=== PATIENT | male | born 1995 | race American Indian/Alaskan Native ===

== ENCOUNTER 2017-06-06 12:55 | Emergency (ER) | payer MEDICAID ==
[2017-06-06 12:56] VITALS: BMI 22.8
[2017-06-06 13:06] VITALS: BP 126/85; PULSE 60; TEMP 98; O2SAT 99
[2017-06-06 13:13] VITALS: RESP 18
--- NOTE | 2017-06-06 13:14 | ED PDOC ---
HPI: SOB/CHF/COPD Time Seen by Provider: 06/06/17 13:07 Chief Complaint (Nursing): Shortness Of Breath Chief Complaint (Provider): Shortness Of Breath History Per: Patient History/Exam Limitations: no limitations Onset/Duration Of Symptoms: Days (x1) Current Symptoms Are (Timing): Still Present Additional Complaint(s): Jose Manuel Cassidy is a 22 year old male with previous medical history of asthma, who presents to the emergency department with a complaint of shortness of breath associated with headache and dizziness ongoing for 1 day. Denied any chest pain. Patient stated he was using an inhaler for relief but ran out of medication last week. PMD: none provided Past Medical History Reviewed: Historical Data, Nursing Documentation, Vital Signs Vital Signs: Last Vital Signs Temp 98.0 F 06/06/17 12:59 Pulse 60 06/06/17 12:59 Resp 18 06/06/17 13:12 BP 126/85 06/06/17 12:59 Pulse Ox 99 06/06/17 14:16 - Medical History PMH: Asthma Denies: Anxiety, Bipolar Disorder, Depression, Paranoia, Post Traumatic Stress Disorder, Chronic Kidney Disease, Schizophrenia - Surgical History Surgical History: No Surg Hx - Family History Family History: States: Unknown Family Hx - Social History Current smoker - smoking cessation education provided: No Ex-Smoker (has not smoked in the last 12 months): No Alcohol: None Drugs: Denies - Home Medications Home Medications: Ambulatory Orders Medication Instructions Recorded Amoxicillin/Clavulanate [Augmentin 1 tab PO BID #20 tab 04/10/16 875 MG-125 MG] Naproxen [Naprosyn Tab] 250 mg PO BID PRN #10 tab 04/10/16 Albuterol HFA [Ventolin HFA 90 1 puff IH BID PRN #2 unit 06/06/17 mcg/actuation (8 g)] - Allergies Allergies/Adverse Reactions: Allergies Allergy/AdvReac Type Severity Reaction Status Date / Time No Known Allergies Allergy Verified 10/03/15 11:17 Review of Systems ROS Statement: Except As Marked, All Systems Reviewed And Found Negative Cardiovascular: Negative for: Chest Pain Respiratory: Positive for: Shortness of Breath (subsiding) Neurological: Positive for: Headache, Dizziness Physical Exam - Reviewed Nursing Documentation Reviewed: Yes Vital Signs Reviewed: Yes - Physical Exam Appears: Positive for: Well, Non-toxic, No Acute Distress Head Exam: Positive for: ATRAUMATIC, NORMAL INSPECTION, NORMOCEPHALIC Skin: Positive for: Normal Color Eye Exam: Positive for: Normal appearance ENT: Positive for: Normal ENT Inspection Neck: Positive for: Normal Cardiovascular/Chest: Positive for: Regular Rate, Rhythm Respiratory: Positive for: Normal Breath Sounds. Negative for: Decreased Breath Sounds, Wheezing, Respiratory Distress Back: Positive for: Normal Inspection Extremity: Positive for: Normal ROM Neurologic/Psych: Positive for: Alert (x3), Oriented - Laboratory Results Result Diagrams: 06/06/17 13:15 06/06/17 13:15 - ECG O2 Sat by Pulse Oximetry: 99 (RA) Pulse Ox Interpretation: Normal Medical Decision Making Medical Decision Making: Initial Impression: Shortness of breath Initial Plan: * EKG * CMP * TSH * CBC * PTT * PT * CXR Time: 1402 --CXR FINDINGS: LUNGS: No active pulmonary disease. PLEURA: No significant pleural effusion identified. No pneumothorax apparent. CARDIOVASCULAR: Normal. OSSEOUS STRUCTURES: No significant abnormalities. VISUALIZED UPPER ABDOMEN: Normal. OTHER FINDINGS: None. IMPRESSION: No acute cardiopulmonary disease appreciated. Scribe Attestation: Documented by Emy Lyle, acting as a scribe for Jessica Wiggins MD. Provider Scribe Attestation: All medical record entries made by the Scribe were at my direction and personally dictated by me. I have reviewed the chart and agree that the record accurately reflects my personal performance of the history, physical exam, medical decision making, and the department course for this patient. I have also personally directed, reviewed, and agree with the discharge instructions and disposition. Disposition - Clinical Impression Clinical Impression: Asthma, Medication refill, Abnormal thyroid function test - Patient ED Disposition Is Patient to be Admitted: No Counseled Patient/Family Regarding: Diagnosis, Need For Followup - Disposition Referrals: [facility] [Outside] Disposition: Routine/Home Disposition Time: 14:21 Condition: GOOD Additional Instructions: Please follow-up with PMD for further evaluation of low TSH level. Prescriptions: Albuterol HFA [Ventolin HFA 90 mcg/actuation (8 g)] 1 puff IH BID PRN #2 unit PRN Reason: Wheezing Instructions: Asthma (ED) Forms: [employer] (Sinhala)
[2017-06-06 13:34] LABS: BASO # 0.1 K/uL (0.0-0.2); BASO % 2.2 % (0.0-2.0); EOS # 0.2 K/uL (0.0-0.7); EOS % 3.5 % (0.0-4.0); HEMATOCRIT 44.9 % (35.0-51.0); LYMPH # 1.5 K/uL (1.0-4.3); MEAN CELL VOLUME 91.8 fl (80.0-94.0); MEAN CORPUSCULAR HEMOGLOBIN 31.7 pg (27.0-31.0); MEAN CORPUSCULAR HGB CONC 34.5 g/dL (33.0-37.0); MEAN PLATELET VOLUME 9.2 fl (7.2-11.7); MONO # 0.5 K/uL (0.0-0.8); NEUT # 3.1 K/uL (1.8-7.0); NEUT % 56.3 % (50.0-75.0); NRBC % 0.1 % (0.0-0.0); RED CELL DISTRIBUTION WIDTH 12.4 % (11.5-14.5); WHITE BLOOD COUNT 5.5 K/uL (4.8-10.8)
[2017-06-06 13:42] LABS: ALB/GLOB RATIO 1.4 (1.0-2.1); ALKALINE PHOSPHATASE 57 U/L (38-126); ALT/SGPT 26 U/L (21-72); AST/SGOT 17 U/L (17-59); BILIRUBIN,TOTAL 0.5 mg/dl (0.2-1.3); BLOOD UREA NITROGEN 15 mg/dl (9-20); CALCIUM 9.4 mg/dL (8.4-10.2); CARBON DIOXIDE 27 mmol/L (22-30); CHLORIDE 105 mmol/L (98-107); GFR AFRICAN-AMERICAN > 60; GLUCOSE,RANDOM 97 mg/dL (75-110); POTASSIUM 4.1 MMOL/L (3.6-5.0); SODIUM 144 mmol/l (132-148); TOTAL PROTEIN 7.8 G/DL (6.3-8.2)
--- NOTE | 2017-06-06 14:04 | RAD ---
HISTORY: dizziness, SOB COMPARISON: No prior. TECHNIQUE: Chest PA and lateral FINDINGS: LUNGS: No active pulmonary disease. PLEURA: No significant pleural effusion identified. No pneumothorax apparent. CARDIOVASCULAR: Normal. OSSEOUS STRUCTURES: No significant abnormalities. VISUALIZED UPPER ABDOMEN: Normal. OTHER FINDINGS: None. IMPRESSION: No acute cardiopulmonary disease appreciated.
--- NOTE | 2017-06-07 08:09 | CARD ---
APPROVED REPORT EKG Measurement Heart [id number] <Conclusion> Sinus bradycardia Incomplete right bundle branch block Borderline ECG
== END 2017-06-06 14:40 | disposition home or self-care (01) ==
LOC: H.ER 12:55
DX: J45.909 Unspecified asthma, uncomplicated (principal); R94.6 Abnormal results of thyroid function studies; Z76.0 Encounter for issue of repeat prescription

== ENCOUNTER 2017-12-02 09:16 | Emergency (ER) | payer MEDICAID ==
[2017-12-02 09:27] VITALS: BP 118/76; PULSE 61; TEMP 97; O2SAT 99
[2017-12-02 09:28] VITALS: RESP 16; BMI 25.0
[2017-12-02] MEDS ORDERED: Naproxen 500 MG TAB PO STA (10:06)
[2017-12-02] MEDS ORDERED: Naproxen 500 MG TAB PO ONE (10:15)
--- NOTE | 2017-12-02 10:28 | RAD ---
PROCEDURE: Radiographs of the Left Shoulder HISTORY: Superior shoulder pain COMPARISON: No prior. FINDINGS: BONES: Normal. No fracture. JOINTS: Normal. Glenohumeral and acromioclavicular joints preserved. No osteoarthritis. SOFT TISSUES: Normal. OTHER FINDINGS: None. IMPRESSION: Normal radiographs of the left shoulder.
--- NOTE | 2017-12-02 10:39 | ED PDOC ---
Upper Extremity Pain/Injury Time Seen by Provider: 12/02/17 10:01 Chief Complaint (Nursing): Upper Extremity Problem/Injury Chief Complaint (Provider): Left Shoulder Pain History Per: Patient History/Exam Limitations: no limitations Onset/Duration Of Symptoms: Days (12/02/07) Current Symptoms Are (Timing): Better Quality: "Pain" Additional Complaint(s): 22 year old male presents to the ED complaining of left shoulder pain. Reports he was playing basketball last night, 12/01/17 and fell. The shoulder pain worsens with movement. Denies taking any medicine for pain. PMD: No Family Provider Past Medical History Reviewed: Historical Data, Nursing Documentation, Vital Signs Vital Signs: Last Vital Signs Temp 97 F L 12/02/17 09:26 Pulse 61 12/02/17 09:26 Resp 16 12/02/17 09:26 BP 118/76 12/02/17 09:26 Pulse Ox 99 12/02/17 09:26 - Medical History PMH: Asthma Denies: Anxiety, Bipolar Disorder, Depression, Paranoia, Post Traumatic Stress Disorder, Chronic Kidney Disease, Schizophrenia - Surgical History Surgical History: No Surg Hx - Family History Family History: States: Unknown Family Hx - Home Medications Home Medications: Ambulatory Orders Medication Instructions Recorded Amoxicillin/Clavulanate [Augmentin 1 tab PO BID #20 tab 04/10/16 875 MG-125 MG] Naproxen [Naprosyn Tab] 250 mg PO BID PRN #10 tab 04/10/16 Albuterol HFA [Ventolin HFA 90 1 puff IH BID PRN #2 unit 06/06/17 mcg/actuation (8 g)] Cyclobenzaprine [Cyclobenzaprine 10 mg PO TID PRN #15 tab 12/02/17 HCl] Naproxen [Naprosyn] 500 mg PO BID PRN #15 tablet 12/02/17 - Allergies Allergies/Adverse Reactions: Allergies Allergy/AdvReac Type Severity Reaction Status Date / Time No Known Allergies Allergy Verified 12/02/17 09:26 Review of Systems ROS Statement: Except As Marked, All Systems Reviewed And Found Negative Musculoskeletal: Positive for: Shoulder Pain (left) Physical Exam - Reviewed Nursing Documentation Reviewed: Yes Vital Signs Reviewed: Yes - Physical Exam Appears: Positive for: Well, Non-toxic, No Acute Distress Head Exam: Positive for: ATRAUMATIC, NORMAL INSPECTION, NORMOCEPHALIC Skin: Positive for: Normal Color, Warm, Dry Eye Exam: Positive for: EOMI, Normal appearance, PERRL ENT: Positive for: Normal ENT Inspection Neck: Positive for: Normal, Painless ROM, Supple. Negative for: Decreased ROM Cardiovascular/Chest: Positive for: Regular Rate, Rhythm. Negative for: Murmur Respiratory: Positive for: Normal Breath Sounds. Negative for: Decreased Breath Sounds, Accessory Muscle Use, Respiratory Distress Gastrointestinal/Abdominal: Positive for: Normal Exam, Bowel Sounds, Soft. Negative for: Tenderness, Guarding, Rebound Back: Positive for: Normal Inspection. Negative for: L CVA Tenderness, R CVA Tenderness Extremity: Positive for: Normal ROM, Tenderness (left superior posterior shoulder). Negative for: Deformity Neurologic/Psych: Positive for: Alert, Oriented (x3). Negative for: Motor/ Sensory Deficits (normal radial pulses) - ECG O2 Sat by Pulse Oximetry: 99 (RA) Pulse Ox Interpretation: Normal Medical Decision Making Medical Decision Making: Time: 1006 Initial Impression: Shoulder Injury Initial Plan: --Flexeril 10mg --Naproxen 500mg --Shoulder Left [RAD] --Reevaluation Time: 1027 PROCEDURE: Radiographs of the Left Shoulder FINDINGS: BONES: Normal. No fracture. JOINTS: Normal. Glenohumeral and acromioclavicular joints preserved. No osteoarthritis. SOFT TISSUES: Normal. OTHER FINDINGS: None. IMPRESSION: Normal radiographs of the left shoulder Arm sling placed. Scribe Attestation: Documented by Ena Quezada, acting as a scribe for Cecy Badillo MD Provider Scribe Attestation: All medical record entries made by the Scribe were at my direction and personally dictated by me. I have reviewed the chart and agree that the record accurately reflects my personal performance of the history, physical exam, medical decision making, and the department course for this patient. I have also personally directed, reviewed, and agree with the discharge instructions and disposition. Disposition - Clinical Impression Clinical Impression: Shoulder strain - Disposition Referrals: [facility] [Outside] Disposition: Routine/Home Disposition Time: 11:19 Condition: STABLE Prescriptions: Cyclobenzaprine [Cyclobenzaprine HCl] 10 mg PO TID PRN #15 tab PRN Reason: Pain Naproxen [Naprosyn] 500 mg PO BID PRN #15 tablet PRN Reason: Pain, Moderate (4-7) Instructions: Muscle Strain Forms: [employer] (Chilean)
== END 2017-12-02 11:44 | disposition home or self-care (01) ==
LOC: H.ER 09:16
DX: M25.512 Pain in left shoulder (principal)

== ENCOUNTER 2017-12-07 11:00 | Emergency (ER) | payer MEDICAID ==
[2017-12-07 11:00] VITALS: BMI 25.0
[2017-12-07 11:10] VITALS: O2SAT 100
[2017-12-07] MEDS ORDERED: Albuterol-Ipratrop 3 mg / 0.5 (3 ml) UD INH STA (11:26)
[2017-12-07] MEDS ORDERED: Albuterol-Ipratrop 3 mg / 0.5 (3 ml) UD ONE (11:32)
--- NOTE | 2017-12-07 11:36 | ED PDOC ---
HPI: SOB/CHF/COPD Time Seen by Provider: 12/07/17 11:21 Chief Complaint (Nursing): Respiratory Distress Chief Complaint (Provider): shortness of breath, chest pain History Per: Patient History/Exam Limitations: no limitations Current Symptoms Are (Timing): Still Present Quality: Tightness Exacerbating Factor(s): Coughing Severity: Mild Associated Symptoms: Chest Pain, Other (cough). denies: Fever, Chills, Dizziness, Anxiety Additional Complaint(s): 22yo male c/o chest tightness and SOB he states is consistent with past experience with asthma. Denies syncope, dizziness, edema or orthopnea. Has history of asthma, no prior admissions, uses albuterol pump intermittently but hasnt had one for awhile. PMD- states goes to urgent care when needed Past Medical History Reviewed: Historical Data, Nursing Documentation, Vital Signs Vital Signs: Last Vital Signs Temp 98.8 F 12/07/17 15:43 Pulse 70 12/07/17 15:43 Resp 19 12/07/17 15:43 BP 110/70 12/07/17 15:43 Pulse Ox 100 12/07/17 15:43 - Medical History PMH: Asthma Denies: Anxiety, Bipolar Disorder, Depression, Paranoia, Post Traumatic Stress Disorder, Chronic Kidney Disease, Schizophrenia - Surgical History Surgical History: No Surg Hx - Family History Family History: States: Unknown Family Hx - Social History Current smoker - smoking cessation education provided: No - Home Medications Home Medications: Ambulatory Orders Medication Instructions Recorded Albuterol HFA [Ventolin HFA 90 1 puff IH BID PRN #2 unit 06/06/17 mcg/actuation (8 g)] Albuterol HFA [Ventolin HFA 90 1 - 2 puff IH Q4 PRN #1 inhaler 12/07/17 mcg/actuation (8 g)] Prednisone 50 mg PO DAILY #4 tab 12/07/17 - Allergies Allergies/Adverse Reactions: Allergies Allergy/AdvReac Type Severity Reaction Status Date / Time No Known Allergies Allergy Verified 12/02/17 09:26 Review of Systems Constitutional: Negative for: Fever, Chills Cardiovascular: Positive for: Chest Pain. Negative for: Palpitations, Orthopnea Respiratory: Positive for: Cough, Shortness of Breath, SOB with Exertion, Wheezing Gastrointestinal: Negative for: Abdominal Pain Genitourinary Male: Negative for: Dysuria Musculoskeletal: Negative for: Neck Pain Skin: Negative for: Rash, Lesions Neurological: Negative for: Weakness, Numbness, Headache, Dizziness Physical Exam - Reviewed Nursing Documentation Reviewed: Yes Vital Signs Reviewed: Yes - Physical Exam Appears: Positive for: Well, Non-toxic, No Acute Distress Head Exam: Positive for: ATRAUMATIC, NORMAL INSPECTION, NORMOCEPHALIC Skin: Positive for: Normal Color, Warm, DRY Eye Exam: Positive for: EOMI, Normal appearance, PERRL ENT: Positive for: Normal ENT Inspection Neck: Positive for: Normal, Painless ROM Cardiovascular/Chest: Positive for: Regular Rate, Rhythm Respiratory: Positive for: Decreased Breath Sounds, Wheezing (trace). Negative for: Rales, Rhonchi, Respiratory Distress Gastrointestinal/Abdominal: Positive for: Normal Exam, Soft Back: Negative for: Decreased ROM Extremity: Positive for: Normal ROM. Negative for: Swelling Neurologic/Psych: Positive for: Alert, Oriented - Laboratory Results Result Diagrams: 12/07/17 11:30 12/07/17 11:30 - ECG ECG: Positive for: Interpreted By Mo ECG Rhythm: Positive for: Sinus Bradycardia, Nonspecific Changes Interpretation Of ECG: ICRBBB Rate: 53 O2 Sat by Pulse Oximetry: 100 Pulse Ox Interpretation: Normal - Radiology X-Ray: Interpreted by Mo X-Ray Interpretation: No Acute Disease Medical Decision Making Medical Decision Making: workup for atypical chest pain in asthmatic initiated labs unremarkable trop neg x2 over approx 3hrs HEART score 1 DC from ED w albuterol and short course prednisone HR remains bradycardic but sinus and asymptomatic, normotensive. Followup PMD Disposition - Clinical Impression Clinical Impression: Chest pain, Asthma, Bradycardia - Patient ED Disposition Is Patient to be Admitted: No Counseled Patient/Family Regarding: Studies Performed, Diagnosis, Rx Given - Disposition Referrals: Marvin Case MD [Staff Provider] - Disposition: Routine/Home Disposition Time: 14:55 Condition: STABLE Additional Instructions: See your doctor for further testing and treatment. Return to ER for any worse or new symptoms. Prescriptions: Albuterol HFA [Ventolin HFA 90 mcg/actuation (8 g)] 1 - 2 puff IH Q4 PRN #1 inhaler PRN Reason: Shortness Of Breath Prednisone 50 mg PO DAILY #4 tab Instructions: Chest Pain (DC), Avoiding Asthma Triggers Forms: [employer] (Bulgarian)
[2017-12-07 12:20] LABS: BASO # 0.1 K/uL (0.0-0.2); EOS # 0.3 K/uL (0.0-0.7); EOS % 4.4 % (0.0-4.0); HEMOGLOBIN 16.4 g/dL (12.0-18.0); LYMPH # 2.1 K/uL (1.0-4.3); LYMPH % 31.8 % (20.0-40.0); MEAN CELL VOLUME 90.2 fl (80.0-94.0); MEAN CORPUSCULAR HEMOGLOBIN 31.8 pg (27.0-31.0); MEAN CORPUSCULAR HGB CONC 35.3 g/dL (33.0-37.0); MEAN PLATELET VOLUME 9.9 fl (7.2-11.7); MONO # 0.5 K/uL (0.0-0.8); MONO % 7.4 % (0.0-10.0); NEUT # 3.7 K/uL (1.8-7.0); NEUT % 55.4 % (50.0-75.0); NRBC % 0.1 % (0.0-0.0); RBC 5.16 Mil/uL (4.40-5.90); RED CELL DISTRIBUTION WIDTH 13.3 % (11.5-14.5); WHITE BLOOD COUNT 6.6 K/uL (4.8-10.8)
[2017-12-07 12:33] LABS: ALB/GLOB RATIO 1.2 (1.0-2.1); ALBUMIN 4.9 g/dL (3.5-5.0); CALCIUM 9.6 mg/dL (8.4-10.2); GFR AFRICAN-AMERICAN > 60; GFR NON-AFRICAN AMERICAN > 60
--- NOTE | 2017-12-07 12:33 | RAD ---
HISTORY: chest pain/ r/o infiltrate COMPARISON: 06/06/2017. TECHNIQUE: Chest PA and lateral FINDINGS: LUNGS: No active pulmonary disease. PLEURA: No significant pleural effusion identified. No pneumothorax apparent. CARDIOVASCULAR: Normal. OSSEOUS STRUCTURES: No significant abnormalities. VISUALIZED UPPER ABDOMEN: Normal. OTHER FINDINGS: None. IMPRESSION: No active disease. No significant interval change compared to the prior examination(s).
[2017-12-07 12:43] LABS: B-TYPE NATRIURETIC PEPTIDE 31.6 pg/ml (0-450)
[2017-12-07 12:47] LABS: ALT/SGPT 31 U/L (21-72); AST/SGOT 37 U/L (17-59); BLOOD UREA NITROGEN 16 mg/dl (9-20)
[2017-12-07 15:44] VITALS: BP 110/70; RESP 19; TEMP 98.8
[2017-12-07 15:46] VITALS: PULSE 53
--- NOTE | 2017-12-08 08:26 | CARD ---
APPROVED REPORT EKG Measurement Heart [id number] <Conclusion> Sinus bradycardia Incomplete right bundle branch block Borderline ECG
== END 2017-12-07 15:44 | disposition home or self-care (01) ==
LOC: H.ER 11:00
DX: R00.1 Bradycardia, unspecified (principal); R07.9 Chest pain, unspecified; J45.909 Unspecified asthma, uncomplicated

== ENCOUNTER 2018-01-30 14:55 | Emergency (ER) | payer MEDICAID ==
[2018-01-30 14:55] VITALS: BMI 25.0
[2018-01-30 15:18] VITALS: BP 118/72; PULSE 67; RESP 18; O2SAT 99
--- NOTE | 2018-01-30 15:34 | ED PDOC ---
History of Present Illness History of Present Illness: 23 year old male presents to the ED for evaluation of a headache, nasal congestion, cough, body aches, and sore throat onset this morning at 04:00. Patient reports taking Tylenol twice, but his persistent symptoms prompted his visit. Of note, he also states his son is being seen in the ED at this time as well for similar symptoms. Otherwise, denies shortness of breath, nausea, vomiting, and diarrhea. PMD: none provided will be referred to clinic HPI: Influenza Time Seen by Provider: 01/30/18 15:19 Chief Complaint: Flu-like Symptoms Chief Complaint (Provider): Flu-like Symptoms History Per: Patient Exam Limitations: no limitations Onset/Duration Of Symptoms: Hrs (this morning 04:00) Sick Contacts (Context): Family Member(s) (son, being seen in ED at this time as well) Past Medical History Reviewed: Historical Data, Nursing Documentation, Vital Signs Vital Signs: Last Vital Signs Temp 99.1 F 01/30/18 15:15 Pulse 67 01/30/18 15:15 Resp 18 01/30/18 15:15 BP 118/72 01/30/18 15:15 Pulse Ox 99 01/30/18 15:15 - Medical History PMH: Asthma Denies: Anxiety, Bipolar Disorder, Depression, Paranoia, Post Traumatic Stress Disorder, Chronic Kidney Disease, Schizophrenia - Surgical History Surgical History: No Surg Hx - Family History Family History: States: Unknown Family Hx - Home Medications Home Medications: Ambulatory Orders Medication Instructions Recorded Albuterol HFA [Ventolin HFA 90 1 puff IH BID PRN #2 unit 06/06/17 mcg/actuation (8 g)] Albuterol HFA [Ventolin HFA 90 1 - 2 puff IH Q4 PRN #1 inhaler 12/07/17 mcg/actuation (8 g)] Prednisone 50 mg PO DAILY #4 tab 12/07/17 - Allergies Allergies/Adverse Reactions: Allergies Allergy/AdvReac Type Severity Reaction Status Date / Time No Known Allergies Allergy Verified 01/30/18 15:15 Review of Systems ROS Statement: Except As Marked, All Systems Reviewed And Found Negative Constitutional: Positive for: Other (body aches) ENT: Positive for: Nose Congestion, Throat Pain Respiratory: Positive for: Cough. Negative for: Shortness of Breath Gastrointestinal: Negative for: Nausea, Vomiting, Diarrhea Neurological: Positive for: Headache Physical Exam - Reviewed Nursing Documentation Reviewed: Yes Vital Signs Reviewed: Yes - Physical Exam Appears: Positive for: No Acute Distress Head Exam: Positive for: ATRAUMATIC, NORMOCEPHALIC Skin: Positive for: Normal Color, Warm, Dry Eye Exam: Positive for: Normal appearance ENT: Positive for: Pharynx Is (erythematous), Sinus Pain/Drainage (nasal drainage noted at back of nasopharynx). Negative for: Tonsillar Swelling ( bilateral tonsils at 0) Neck: Positive for: Normal, Painless ROM, Supple Cardiovascular/Chest: Positive for: Regular Rate, Rhythm. Negative for: Murmur Respiratory: Positive for: Normal Breath Sounds. Negative for: Accessory Muscle Use, Respiratory Distress Lymphatic: Positive for: Other (normal cervical lymphnodes). Negative for: Axilla Node Tenderness Neurologic/Psych: Positive for: Alert, Oriented (x3). Negative for: Motor/ Sensory Deficits Medical Decision Making Medical Decision Making: Time: 1530 Initial Impression: possible flu Initial Plan: --Motrin 600 mg PO --Tylenol 650 mg PO --Influenza A B 1723 Flu results negative. Patient made aware, all questions answered at this time. Scribe Attestation: Documented by Mary Beth Hernandes, acting as a scribe for Дмитрий Turner PA-C. Provider Scribe Attestation: All medical record entries made by the Scribe were at my direction and personally dictated by me. I have reviewed the chart and agree that the record accurately reflects my personal performance of the history, physical exam, medical decision making, and the department course for this patient. I have also personally directed, reviewed, and agree with the discharge instructions and disposition. - ECG O2 Sat by Pulse Oximetry: 99 (RA) Pulse Ox Interpretation: Normal Disposition - Clinical Impression Clinical Impression: Influenza-like symptoms, Viral upper respiratory illness - Patient ED Disposition Is Patient to be Admitted: No Doctor Will See Patient In The: Office Counseled Patient/Family Regarding: Diagnosis, Need For Followup - Disposition Referrals: [facility] [place] [Outside] Disposition: Routine/Home Disposition Time: 17:28 Condition: STABLE Instructions: Viral Upper Respiratory Infection, Adult (DC) Forms: [employer] (Ghanaian)
[2018-01-30 17:36] VITALS: TEMP 98.6
== END 2018-01-30 17:38 | disposition home or self-care (01) ==
LOC: H.ER 14:55
DX: J11.1 Influenza due to unidentified influenza virus with other respiratory manifestations (principal); J45.909 Unspecified asthma, uncomplicated

== ENCOUNTER 2018-07-22 16:07 | Emergency (ER) | payer MEDICAID ==
[2018-07-22 16:07] VITALS: BMI 25.0
[2018-07-22 17:06] VITALS: BP 108/61; PULSE 78; RESP 18; TEMP 97.7; O2SAT 99
== END 2018-07-22 20:07 | disposition left against medical advice (07) ==
LOC: H.ER 16:07
DX: Z02.89 Encounter for other administrative examinations (principal)